=== PATIENT | male | born 1980 | race Two or more races ===

== ENCOUNTER 2019-01-14 17:31 | Emergency (ER) | payer BC ==
[2019-01-14 18:04] VITALS: BP 126/86; PULSE 96; TEMP 98.9; BMI 33.3
[2019-01-14] MEDS ORDERED: METOCLOPRAMIDE HCL 10 MG TABLET (FP) PO ONE ×2 (18:46→18:50)
[2019-01-14] MEDS ORDERED: NAPROXEN 500 MG TABLET (FP) PO ONE (18:46)
[2019-01-14] MEDS ORDERED: PSEUDOEPHEDRINE HCL 30 MG TABLET PO ONE (18:47)
[2019-01-14] MEDS ORDERED: guaiFENesin 600 MG TABLET.ER (FP) PO ONE ×2 (18:50→18:54)
[2019-01-14] MEDS ORDERED: PSEUDOEPHEDRINE HCL 30 MG TABLET ONE (18:50)
[2019-01-14] MEDS ORDERED: NAPROXEN 500 MG TABLET (FP) ONE (18:51)
[2019-01-14] MEDS ORDERED: guaiFENesin 600 MG TABLET.ER (FP) PO SCH (22:00)
== END 2019-01-14 20:25 | disposition home or self-care (01) ==
LOC: FER 17:31
DX: G44.209 Tension-type headache, unspecified, not intractable (principal); H90.5 Unspecified sensorineural hearing loss
CPT/HCPCS: 70450-TC; 70486-TC; 99281-25